=== PATIENT | male | born 1960 | race Caucasian/White ===

== ENCOUNTER 2017-06-06 07:07 | Day surgery (SDC) | payer OTHER ==
[~2017-06-06] VITALS: Ht 177.8 cm; Wt 95.3 kg
[2017-06-06] MEDS ORDERED: ATORVASTATIN (08:22)
[2017-06-06] MEDS ORDERED: COLAZAL (08:22)
[2017-06-06] MEDS ORDERED: LEVOTHYROXINE (08:22)
[2017-06-06] MEDS ORDERED: LIDOCAINE 2% (SDV) 5 ML INJ ONE (08:53)
[2017-06-06] MEDS ORDERED: PROPOFOL 40 ML ONE (08:53)
--- NOTE | 2017-06-06 09:23 | OPPN ---
Date/Time of Note Date/Time of Note DATE: 06/06/17 TIME: 08:56 Operative Report Preoperative Diagnosis Ulcerative colitis Postoperative Diagnosis Ulcerative colitis in remission Multiple random biopsies were taken Operation/Procedure Performed Colonoscopy and biopsy Surgeon see signature line assistant director None Anesthesia: MAC Estimated blood loss: none Transfusion Required none Specimen Random colon biopsy Grafts/Implants none Complications none CHELITA BYERS MD Jun 06, 2017 09:23
[2017-06-06 10:00] VITALS: BP 126/71; PULSE 57; RESP 20
--- NOTE | 2017-06-06 13:02 | GILP ---
DATE OF PROCEDURE: NAME OF PROCEDURES: Colonoscopy and biopsy. SURGEON: Salvador Islas MD PREOPERATIVE DIAGNOSES: Ulcerative colitis. POSTOPERATIVE DIAGNOSES: 1. Ulcerative colitis in remission. 2. Random biopsies were taken to rule out dysplastic lesions in the colon. INDICATION FOR THE PROCEDURE: Mr. Seun Plunkett is a 56-year-old male patient who has longstand ing ulcerative colitis. The patient was scheduled for colonoscopy and random biopsy to rule out dys plastic changes in the epithelium. The procedure and possible complications are well explained to the patient. He understood and consen robert to the procedure. DESCRIPTION OF PROCEDURE: Under the influence of anesthesia, the colonoscope was carefully introduc ed in the rectum and under direct vision, it was advanced all the way to the cecum. FINDINGS: The patient had ulcerative colitis in remission. Random biopsies were taken all over the colon to look for dysplastic changes in the epithelium. He was noted to have internal hemorrhoids. He tolerated the procedure very well and there was no complication from the procedure. At the end o f the procedure, he was awake with stable vital signs and he was discharged home to the care of his family. IMPRESSION: 1. Colonoscopy all the way to the cecum. 2. Ulcerative colitis in remission. 3. Multiple Random biopsies were taken to look for dysplastic changes in the epithelium. PLAN: 1. Await histopathology report. 2. Continue Colazal. 3. The timing for the next colonoscopy will be decided after reviewing the biopsy report. Dictated By: SALVADOR FISHMAN/MADELEINE Conf#: [id number] DID#: [id number]
== END 2017-06-06 10:23 | disposition home or self-care (01) ==
LOC: GIL 07:07
PROVIDERS: ATTEND Internal Medicine Gastroenterology
DX: K51.90 Ulcerative colitis, unspecified, without complications (principal); E03.9 Hypothyroidism, unspecified; E78.5 Hyperlipidemia, unspecified; K64.8 Other hemorrhoids
CPT/HCPCS: 88305